=== PATIENT | female | born 1975 | race Caucasian/White ===

== ENCOUNTER → 2017-02-24 | Outpatient (CLI) | payer BC, OTHER ==
[~2017-02-24] MED LIST: CALC500C50 PO; HYDR2TAB2 PO; NORT25CA2 PO; PREN1TAB29; [UNRECOGNIZED DRUG - CODE] TOP
== END | disposition home or self-care (01) ==
LOC: C.PAPS 07:50
PROVIDERS: ATTEND Obstetrics & Gynecology
DX: Z01.419 Encounter for gynecological examination (general) (routine) without abnormal findings (principal); R92.2 Inconclusive mammogram